=== PATIENT | female | born 1965 ===

== ENCOUNTER 2018-01-12 09:22 | Day surgery (SDC) | payer OTHER ==
[2017-10-24 10:09] VITALS: BMI 26.8
[2018-01-12 10:06] VITALS: TEMP 98.9
[2018-01-12] MEDS ORDERED: Lactated Ringer's 1,000 ML IV ONE ×2 (11:40)
[2018-01-12] MEDS ORDERED: Propofol 10 mg/ml Inj (20 ML) ONE (11:48)
[2018-01-12] MEDS ORDERED: Simethicone 40 mg/0.6 ml Liquid (30 ml) ONE (11:57)
--- NOTE | 2018-01-12 12:13 | CP.SDSHP ---
Same Day Surgery H & P - History Proposed Procedure: colonoscopy Pre-Op Diagnosis: colon camcer screening - Previous Medical/Surgical History Cardiac: Hypertension - Allergies Allergies: Allergies No Known Allergies Allergy (Verified 10/17/16 20:29) - Physical Exam Vital Signs: Vital Signs 01/12/18 09:52 Temperature 98.9 F Pulse Rate 80 Respiratory 20 Rate Blood Pressure 140/69 O2 Sat by Pulse 97 Oximetry Mental Status: Alert & Oriented x3 Neuro: WNL Heart: WNL Lungs: WNL GI: WNL - {Optional Preform as Required} Abdomen: WNL Rectal: WNL - Impression Impression: colon cancer screening Pt. Evaluated Today:Candidate for Anesthesia & Procedure: Yes - Date & Time Date: 01/12/18 Time: 10:00 Short Stay Discharge - Short Stay Discharge Admitting Diagnosis/Reason for Visit: ENCOUNTER FOR SCREENING FOR MALIGNANT NEOPLASM OF
[2018-01-12 12:32] VITALS: O2SAT 100
[2018-01-12 12:35] VITALS: RESP 18
[2018-01-12 13:33] VITALS: BP 165/87; PULSE 99
== END 2018-01-12 13:20 | disposition home or self-care (01) ==
LOC: C.ENDO 09:22
PROVIDERS: ATTEND Internal Medicine Gastroenterology
DX: Z12.11 Encounter for screening for malignant neoplasm of colon (principal); D12.0 Benign neoplasm of cecum
CPT/HCPCS: 45380; 82948; 84703; 88305; J2704; J7120

== ENCOUNTER 2018-10-16 23:08 | Emergency (ER) | payer OTHER ==
[2018-10-16 23:09] VITALS: BMI 28.5
[2018-10-16 23:47] VITALS: TEMP 97.5
[2018-10-16] MEDS ORDERED: Sodium Chloride 0.9% 1,000 ML IV ONE (23:52)
--- NOTE | 2018-10-16 23:52 | C.PDOC ---
History Of Present Illness Patient presents to the ER with a complaint of feeling dizzy. Patient is an insulin dependent diabetic and gave herself 27 units of insulin without first checking her sugar. Patients sugar here is 90. Denies fever, chills, nausea, or vomiting. Time Seen by Provider: 10/16/18 23:51 Chief Complaint (Nursing): Weakness/Neurological Deficit History Per: Patient History/Exam Limitations: no limitations Onset/Duration Of Symptoms: Hrs Current Symptoms Are (Timing): Still Present Seizure Or Post-ictal Symptoms: None Possible Causative Factor(s): Other (27 units of insulin) Fall Associated With With Symptoms: No Severity: Moderate Pain Scale Rating Of: 4 Recent travel outside of the [place]: No - Symptoms Of CVA Associated Symptoms: denies: Impaired Speech, Seizure Activity, New Vision Deficit(Left), New Vision Deficit(Right), Decreased Ability To Walk, New Confusion Past Medical History Reviewed: Historical Data, Nursing Documentation, Vital Signs Vital Signs: Last Vital Signs Temp 97.5 F L 10/16/18 23:43 Pulse 83 10/16/18 23:48 Resp 24 10/16/18 23:48 BP 92/53 L 10/16/18 23:48 Pulse Ox 97 10/16/18 23:48 - Medical History PMH: HTN, Hypercholesterolemia, Chronic Kidney Disease Denies: Anxiety Family History: States: No Known Family Hx - Social History Hx Alcohol Use: No Hx Substance Use: No - Immunization History Hx Tetanus Toxoid Vaccination: No Hx Influenza Vaccination: No Hx Pneumococcal Vaccination: No Review Of Systems Constitutional: Negative for: Fever, Chills Cardiovascular: Negative for: Chest Pain, Palpitations Respiratory: Negative for: Cough, Shortness of Breath Gastrointestinal: Negative for: Nausea, Vomiting Neurological: Positive for: Dizziness Physical Exam - Physical Exam Appears: Non-toxic Skin: Warm, Dry Head: Normacephalic Eye(s): bilateral: Normal Inspection, PERRL, EOMI Oral Mucosa: Moist Neck: Trachea Midline, Supple Chest: Symmetrical, No Tenderness Cardiovascular: Rhythm Regular Respiratory: No Rales, No Rhonchi, No Wheezing Gastrointestinal/Abdominal: Soft, No Tenderness Neurological/Psych: Oriented x3 ED Course And Treatment - Laboratory Results Result Diagrams: 10/16/18 23:55 10/16/18 23:55 ECG: Interpreted By Me, Viewed By Me ECG Rhythm: Sinus Rhythm (80), Nonspecific Changes O2 Sat by Pulse Oximetry: 97 Pulse Ox Interpretation: Normal - Radiology CXR: Interpreted by Me, Viewed By Me CXR Interpretation: No: Infiltrates, Fracture, Pnemothorax Progress Note: EKG, blood work, urinalysis, and CXR ordered. IV fluids administered. Reevaluation Time: 02:56 Reassessment Condition: Improved Disposition Counseled Patient/Family Regarding: Studies Performed, Diagnosis, Need For Followup - Disposition Referrals: [facility] [Outside] [facility] [Outside] Disposition: HOME/ ROUTINE Disposition Time: 23:52 Condition: FAIR Additional Instructions: Por favor regrese si los sntomas recurren. Por favor, chchese los azcares antes de ponerse insulina. Instructions: Low Blood Sugar, Adult (DC), Low Blood Pressure (DC) Forms: [employer] (Welsh) Print Language: BURUNDIAN - Clinical Impression Clinical Impression: Hypoglycemia due to type 2 diabetes mellitus, Hypotension - Scribe Statement The provider has reviewed the documentation as recorded by the Scribsimona Morris All medical record entries made by the Scribe were at my direction and personally dictated by me. I have reviewed the chart and agree that the record accurately reflects my personal performance of the history, physical exam, medical decision making, and the department course for this patient. I have also personally directed, reviewed, and agree with the discharge instructions and di sposition.
[2018-10-17] MEDS ORDERED: Sodium Chloride 0.9% 1,000 ML ONE ×2 (00:02→01:17)
[2018-10-17 00:06] LABS: BASO % 0.4 % (0.0-2.0); EOS % 0.4 % (0.0-4.0); HEMOGLOBIN 14.7 g/dL (11.0-16.0); LYMPH # 1.8 K/uL (1.0-4.3); LYMPH % 18.8 % (20.0-40.0); MEAN CELL VOLUME 91.1 fL (81.0-99.0); MEAN PLATELET VOLUME 9.3 fL (7.2-11.7); MONO # 0.8 K/uL (0.0-0.8); MONO % 8.2 % (0.0-10.0); NEUT # 6.7 K/uL (1.8-7.0); NEUT % 72.2 % (50.0-75.0); RBC 4.73 Mil/uL (3.80-5.20); RED CELL DISTRIBUTION WIDTH 12.8 % (11.5-14.5); WHITE BLOOD COUNT 9.3 K/uL (4.8-10.8)
[2018-10-17 00:26] LABS: ALB/GLOB RATIO 1.2 (1.0-2.1); ALBUMIN 4.2 g/dL (3.5-5.0); ALT/SGPT 20 U/L (9-52); AST/SGOT 22 U/L (14-36); BLOOD UREA NITROGEN 23 mg/dL (7-17); CALCIUM 9.5 mg/dl (8.6-10.4); GFR NON-AFRICAN AMERICAN > 60; LIPASE 134 U/L (23-300)
[2018-10-17 00:30] LABS: VENOUS BLOOD GAS BASE EXCESS 1.1 mmol/L (0.0-2.0); VENOUS BLOOD GAS PCO2 55 mmHg (40-60); VENOUS BLOOD GAS PO2 26 mm/Hg (30-55); VENOUS BLOOD PH 7.32 (7.32-7.43)
[2018-10-17] MEDS ORDERED: Sodium Chloride 0.9% 1,000 ML IV ONE (00:58)
[2018-10-17 02:30] VITALS: BP 130/72; PULSE 86; RESP 20
[2018-10-17 02:58] VITALS: O2SAT 97
[2018-10-17 03:13] LABS: SQUAMOUS EPITHIAL 19 /hpf (0-5); URINE BACTERIA MANY (<OCC); URINE BILIRUBIN NEGATIVE (NEGATIVE); URINE BLOOD NEGATIVE (NEGATIVE); URINE CLARITY Hazy (Clear); URINE COLOR Yellow (YELLOW); URINE GLUCOSE (UA) NORMAL (Normal); URINE LEUKOCYTE ESTERASE 3+ Leu/uL (Negative); URINE PROTEIN 1+ mg/dL (NEGATIVE); URINE UROBILINOGEN NORMAL mg/dL (0.2-1.0)
--- NOTE | 2018-10-17 11:53 | RAD ---
Date of service: 10/16/2018 PROCEDURE: CHEST RADIOGRAPH, 1 VIEW HISTORY: Diabetic COMPARISON: None available. FINDINGS: LUNGS: There are low lung volumes. The lungs are clear. PLEURA: No pneumothorax or pleural effusion. CARDIOVASCULAR: The heart is normal in size. No aortic atherosclerotic calcifications present. OSSEOUS STRUCTURES: Within normal limits for the patient's age. VISUALIZED UPPER ABDOMEN: Normal. OTHER FINDINGS: None. IMPRESSION: No active pulmonary disease. Low lung volumes which may be related to poor inspiratory effort.
--- NOTE | 2018-10-19 15:09 | CARD ---
APPROVED REPORT Date of service: 10/17/2018 EKG Measurement Heart [id number] <Conclusion> Normal sinus rhythm Moderate voltage criteria for LVH, may be normal variant Nonspecific T wave abnormality Prolonged QT Abnormal ECG
== END 2018-10-17 03:28 | disposition home or self-care (01) ==
LOC: C.ER 23:08 → SUPCPDRO 23:08 → C.ER 10-17 03:28
DX: E11.649 Type 2 diabetes mellitus with hypoglycemia without coma (principal); Z79.4 Long term (current) use of insulin; I95.9 Hypotension, unspecified
CPT/HCPCS: 71045; 80053; 81001; 82009; 82803; 82948; 83690; 85025; 93005; 99285; J7030

== ENCOUNTER 2018-12-11 14:44 | Outpatient (CLI) | payer OTHER | END 2018-12-11 14:45 | disposition home or self-care (01) | LOC: C.LAB 14:44 | DX: R80.9 Proteinuria, unspecified (principal) ==

== ENCOUNTER 2019-01-08 15:21 | Outpatient (CLI) | payer OTHER | END 2019-01-08 15:22 | disposition home or self-care (01) | LOC: C.USIC 15:21 | DX: R80.9 Proteinuria, unspecified (principal) ==